=== PATIENT | female | born 1985 | race Hispanic/Latino ===

== ENCOUNTER 2025-01-21 20:36 | Emergency (ER) | payer OTHER ==
[~2025-01-21] VITALS: Ht 154.9 cm; Wt 94.8 kg
--- NOTE | 2025-01-21 21:51 | ERN ---
ED Note History of Present Illness Stated Complaint: C/O FO IN THROAT X 2 WKS Chief Complaint: Swallowed Foreign Body Time Seen by MD: 20:39 Time Seen by Midlevel: 20:39 Dictation: The patient is a 39-year-old female with history of tubal ligation who presents to the emergency department with complaints of possible foreign body in throat. Patient reports that two weeks ago she was eating pasta with chicken and does not know if she swallowed a bone. Reports she is followed up with her primary doctor who had an x-ray done and told her there was nothing present but patient continue with symptoms. Reports that today she was trying to clear her throat and she felt something move on her right side. Patient with no cough, nausea or vomiting. Allergies: Coded Allergies: No Known Allergies (Unverified Allergy, Unknown, 01/21/25) Past Medical History Past Medical History: No Pertinent History Surgical History: Other LMP: Dec 31, 2024 RN Note Reviewed/Agreed w/PFSH: Yes Review of System Dictation Constitutional: Negative for fever,chills, and weight loss Eyes: Negative for injury, pain,redness, and discharge ENT: Negative for injury,pain or swelling positive for possible foreign body in throat Cardiovascular: Negative for chest pain, palpitations, and edema Respiratory: Negative for shortness of breath, cough, and wheezing, Abdomen/GI: Negative for abdominal pain, nausea, vomiting, diarrhea, and constipation Back: Negative for injury and pain : Negative for injury, bleeding and discharge MS/Extremity: Negative for injury and deformity Skin: Negative for rash, and discoloration Neuro: Negative for headache, weakness, numbness, tingling, and seizure Psych: Negative for suicide ideation, homicidal ideation, and hallucinations Initial Vital Sign VS Vital Signs Date Time Temp Pulse Resp B/P (MAP) Pulse Ox O2 Delivery O2 Flow Rate FiO2 01/21/25 20:38 98.1 92 20 138/105 98 Room Air 01/21/25 22:04 0 21 Physical Exam Dictation Vital Signs reviewed General Appearance: Alert, oriented x 3, no acute distress, well developed, nourished. Head and Face: non-traumatic. Eyes: PERRL, pink conjunctivas, eyelid no trauma, anterior chamber with arcus senilis. Ears: Pinnas intact and no signs of trauma or erythema ear canals clear and no discharge TM no erythema Nose: No discharge, no bleeding. Oropharynx: Mouth normal, tongue pink. pharynx clear,no erythema, tonsils no exudates, no abscesses noted, mucous membrane moist Neck: Supple, non-tender, no thyromegaly, no masses, no JVD, no bruits Breast:Deferred Chest:No tenderness, no crepitus, no paradoxical movement, no retractions Lungs:Clear, well-ventilated, symmetric, no rales, no wheezing, no rhonchi, no stridor, good breath sounds bilaterally Heart: Regular rate, regular rhythm, no murmur, no gallops Vascular: no peripheral edema, Abdomen: Soft, positive bowel sounds, nondistended, no guarding, nontender, no rebound, no masses no hepatomegaly, no splenomegaly, no Robledo's sign, no hernias. Rectal: Deferred Genital: Deferred Neurological: Normal speech, motor function intact, sensory function intact Musculoskeletal: Neck nontender, full range of motion, back nontender, full range of motion, Extremities: nontender, full range of motion Skin: Color pink, dry, no turgor, no rash, no lacerations, no abrasions, no contusions. Lymphatic: Deferred Results (Laboratory/Radiology) Laboratory/Radiology EXAM: CR Soft Tissue Neck, 3 views. CLINICAL HISTORY: Rule out foreign body. COMPARISON: None provided. FINDINGS: No radiopaque foreign body. Unremarkable nasopharynx. The epiglottis is identified and is unremarkable. The airway is clear. No acute osseous abnormality. IMPRESSION: Negative examination. No radiopaque foreign body is evident. Labs Reviewed?: Yes ED Course ED Course Orders Procedure Category Date Status Time Neck Soft Tissue RAD 01/21/25 Taken 20:52 Lidocaine Hcl 2% PHA 01/21/25 Complete Viscous (Lidocaine Hcl 21:00 Mag/Alum/Simeth 30ml PHA 01/21/25 Complete (Maalox Plus 30ml) 21:00 Current Medications Medications (Trade) Dose Ordered Sig/Rachael Route PRN Reason Start Time Stop Time Status Last Admin Dose Admin Al Hydroxide/Mg Hydroxide (MAALox PLUS 30ML) 30 ml ONCE ONCE PO 01/21/25 21:00 01/21/25 21:01 DC 01/21/25 22:20 Lidocaine HCl (Lidocaine HCl 2% Viscous) 10 ml ONCE ONCE PO 01/21/25 21:00 01/21/25 21:01 DC 01/21/25 22:20 Vital Signs Date Time Temp Pulse Resp B/P (MAP) Pulse Ox O2 Delivery O2 Flow Rate FiO2 01/21/25 22:04 98.1 88 18 128/95 98 Room Air* 0 21 01/21/25 20:38 98.1 92 20 138/105 98 Room Air Medical Decision Making MDM The patient is a 39-year-old female with history of tubal ligation who presents to the emergency department with complaints of possible foreign body in throat. Patient reports that two weeks ago she was eating pasta with chicken and does not know if she swallowed a bone. Reports she is followed up with her primary d brant who had an x-ray done and told her there was nothing present but patient continue with symptoms. Reports that today she was trying to clear her throat and she felt something move on her right side. Patient with no cough, nausea or vomiting. No obvious foreign body seen on x-ray. Patient had the sensation for two weeks. On physical exam patient has clear lung sounds, airway intact, no drooling. Patient able to tolerated p.o. intake. Patient we will be discharged in instructed to follow up with GI. Patient in no acute distress, nontoxic appearance. Differential diagnosis: Foreign body, gastritis, throat irritation Need for hospitalization: Patient does not meet criteria for hospitalization. There are no social concerns with this patient. DX & DISP Disposition: Discharge Departure Impression: Primary Impression: Foreign body sensation in throat Condition: Stable Additional Instructions: Your x-ray did not show any foreign bodies. 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 You can take Tylenol or ibuprofen as needed for the discomfort. FOLLOW-UP WITH PRIMARY CARE PROVIDER IN 1 TO 2 DAYS. TAKE MEDICATIONS DIRECTED HERE IN THE EMERGENCY ROOM. OKAY TO CONTINUE HOME MEDICATIONS UNLESS OTHERWISE DISCUSSED DURING YOUR VISIT IN THE EMERGENCY ROOM TODAY. RETURN TO YOUR NEAREST EMERGENCY ROOM IF SYMPTOMS WORSEN OR IF THERE IS NO IMPROVEMENT. CALL 911 IF YOU NEED IMMEDIATE ASSISTANCE. TAKE TYLENOL [id number] NEEDED AND IF NO CONTRAINDICATIONS ARE PRESENT. INCREASE ORAL HYDRATION. A WOUND CULTURE OR URINE CULTURE WAS ORDERED HERE IN THE EMERGENCY ROOM DEPARTMENT PLEASE FOLLOW-UP WITH PRIMARY CARE PROVIDER AND ADVISE THEM TO GET REPEAT PORTS FROM OUR FACILITY. IF YOU HAD ANY MIKE WRAP/SPLINTS THAT WERE APPLIED HERE, PLEASE DO NOT REMOVE THEM UNTIL YOU SEE YOUR PRIMARY CARE OR SPECIALTY. Referrals: SELF,REFERRAL (PCP) LENCHO BLAKE MD Time of Disposition: 22:49 I have reviewed the case, and I agree with, Diagnosis and Plan [facility] Jan 21, 2025 21:51
[2025-01-21 22:04] VITALS: BP 128/95; PULSE 88; RESP 18; TEMP 98.1; O2SAT 98
[2025-01-21] MEDS: MAG/ALUM/SIMETH 30 ML UDCUP PO ONE (22:20)
[2025-01-21] MEDS: LIDOCAINE HCL 2% VISCOUS 15 ML UDCUP PO ONE (22:20)
--- NOTE | 2025-01-21 22:48 | HMCIMG ---
EXAM: CR Soft Tissue Neck, 3 views. CLINICAL HISTORY: Rule out foreign body. COMPARISON: None provided. FINDINGS: No radiopaque foreign body. Unremarkable nasopharynx. The epiglottis is identified and is unremarkable. The airway is clear. No acute osseous abnormality. IMPRESSION: Negative examination. No radiopaque foreign body is evident. /Phelan
== END 2025-01-21 22:56 | disposition home or self-care (01) ==
LOC: EDH 20:36
DX: R09.A2 Foreign body sensation, throat (principal)
CPT/HCPCS: 70360; 99283